=== PATIENT | female | born 1970 | race Caucasian/White ===

== ENCOUNTER 2023-03-26 09:03 | Emergency (ER) | payer SELFPAY ==
[2023-03-26] MEDS ORDERED: Metoclopramide HCl 10 MG/2 ML VIAL ONE (11:23)
[2023-03-26 11:29] LABS: #Eosinphils 0.1 10x3/uL (0.0-0.5); #Monocytes 0.5 10x3/uL (0.0-1.1); #Neutrophils 4.5 10x3/uL (1.5-8.4); %Basophils 0.6 % (0.0-2.0); %Eosinophils 0.8 % (0.0-6.0); %Lymphocytes 22.9 % (18.0-47.0); %Neutrophils 68.4 % (40.0-75.0); Hemoglobin 8.6 g/dL (12.0-15.5); Mean Corpuscular HGB CONC 27.7 g/dL (32.0-36.0); Mean Corpuscular Hemoglobin 17.6 pg (27.0-33.0); Mean Corpuscular Volume 63.3 fl (81.6-98.3); Mean Platelet Volume 9.9 fl (7.4-10.4); Platelet Count 346 10x3/uL (150-450); RBC Distribution Width 22.4 % (11.5-14.5); White Blood Cell (WBC) Count 6.5 10x3/uL (3.5-10.5)
[2023-03-26] MEDS ORDERED: Metoclopramide HCl 10 MG/2 ML VIAL IVP SCH (11:45)
[2023-03-26 11:47] LABS: ALT (SGPT) 13 U/L (8-55); AST (SGOT) 16 U/L (5-34); Alkaline Phosphatase 69 U/L (40-110); Anion Gap 9 mmol/L (10-20); BUN (Urea Nitrogen) 13 mg/dL (7.0-18.7); Bilirubin, Total 0.5 mg/dL (0.2-1.2); Calc. Creatinine Clearance 0 mL/min (70-130); Calcium 9.1 mg/dL (7.8-10.44); Carbon Dioxide 26 mmol/L (22-29); Chloride 106 mmol/L (98-107); Estimated GFR 95; Globulin 2.9 g/dL (2.4-3.5); Glucose 85 mg/dL (70-105); Magnesium 1.9 mg/dL (1.6-2.6); Potassium 4.1 mmol/L (3.5-5.1); Protein, Total 6.9 g/dL (6.0-8.3); Sodium 137 mmol/L (136-145)
[2023-03-26 12:44] LABS: Hypochromia SLIGHT = 6-15 cells (100X) (0-5/hpf); Microcytosis MODERATE=15-30 cells (100X) (0-5/hpf); Ovalocytes SLIGHT = 2-5 cells (100X) (0-1/hpf)
[2023-03-26 12:47] LABS: Platelet Adequacy Comment Appears Adequate; Reflex for Review?? YES
== END 2023-03-26 13:36 | disposition home or self-care (01) ==
LOC: CSHERS 09:03
DX: R51.9 Headache, unspecified (principal); F17.290 Nicotine dependence, other tobacco product, uncomplicated
CPT/HCPCS: 70450; 80053; 83735; 85025; 85060; 96365; J2765